=== PATIENT | male | born 1995 ===

== ENCOUNTER 2018-03-17 19:06 | Emergency (ER) | payer BC ==
--- NOTE | 2018-03-17 19:10 | ER Report ---
History and Physical Time Seen By MD: 19:11 HPI/ROS CHIEF COMPLAINT: ankle injury HISTORY OF PRESENT ILLNESS: This is a 22 year old male. He was kick-boxing and planted his left foot to kick with his right. Twisted wrong and fell onto his left foot, hyper plantar flexion. Has pain in forefoot and lateral ankle. Has normal sensation. Cannot bear weight. Can move the foot and toes, but with significant pain. Allergies: Coded Allergies: No Known Allergies (Verified Allergy, Unknown, 03/17/18) Home Meds Active Scripts Hydrocodone Bit/Acetaminophen (HYDROCODON-ACETAMINOPHEN 5-325) 1 Each Tablet, 1 EACH PO Q4H PRN for PAIN, #6 TAB 0 Refills Prov:TEREZA ESTEBAN MD 03/17/18 Reviewed Nurses Notes: Yes Constitutional Vital Sign - Last 24 Hours 03/17/18 03/17/18 19:14 19:36 Temp 98.5 Pulse 80 65 Resp 14 B/P (MAP) 131/77 Pulse Ox 95 91 O2 Delivery Room Air Physical Exam General: Alert, mild distress Musculoskeletal: Pain in lateral ankle, but not over the lateral or medial malleolus, pain just below in lateral foot. Pain over head of the 5th metatarsal. Pain in the are of tarsal and metatarsals as well. Neuro: Can move the toes and foot, but cause pain. Normal sensation. Cardiovascular: Normal cap refill and PT and DP pulses. Skin: No breakdown or bruising, but does have swelling. Medical Decision Making EKG/Imaging Imaging FOOT 3 VIEW LEFT COMPARISONS: None. ADDITIONAL PERTINENT HISTORY: Injury while kickboxing FINDINGS: Osseous structures: Negative. Joint spaces: Negative. Surrounding soft tissues: Negative. IMPRESSION: Normal views of the left foot. Report Dictated By: Fred Carvalho MD at 03/17/2018 7:40 PM ANKLE 3 VIEW MIN LEFT COMPARISONS: None. ADDITIONAL PERTINENT HISTORY: Injury while kickboxing FINDINGS: Osseous structures: Negative. Joint spaces: Negative. Surrounding soft tissues: Negative. IMPRESSION: Normal views of the left ankle. Report Dictated By: Fred Carvalho MD at 03/17/2018 7:38 PM ED Course/Re-evaluation ED Course Negative imaging, reviewed this with the patient. Conservative management. He has crutches at home. Off work until he is able to bear weight. Decision to Disposition Date: Mar 17, 2018 Decision to Disposition Time: 20:18 Depart Departure Latest Vital Signs Vital Signs Date Time Temp Pulse Resp B/P (MAP) Pulse Ox O2 Delivery O2 Flow Rate FiO2 03/17/18 19:36 65 91 03/17/18 19:14 98.5 14 131/77 Room Air Impression: Primary Impression: Left ankle sprain Additional Impression: Sprain of foot, left Condition: Improved Disposition: HOME OR SELF-CARE New Scripts Hydrocodone Bit/Acetaminophen (HYDROCODON-ACETAMINOPHEN 5-325) 1 Each Tablet 1 EACH PO Q4H PRN for PAIN, #6 TAB 0 Refills Prov: TEREZA ESTEBAN MD 03/17/18 Patient Instructions: Ankle Sprain (ED), Foot Sprain (ED) Additional Instructions: Ibuprofen 200mg over the counter tablets, take 4 tablets three times a day with food. Lortab 5/325, one every 4 hours as needed for pain. Apply ice 20 minutes every 1-2 hours while awake. An LAUREN wrap can be used for compression to help reduce swelling. Rest the injured area, keep it elevated while at rest. Begin gentle range of motion exercises, crutches with weightbearing as tolerated. Off work until able to bear weight. If symptoms lasting greater than 7 days, will need follow-up with primary care or orthopedic surgery. Problem Qualifiers Primary Impression: Left ankle sprain Encounter type: initial encounter Involved ligament of ankle: anterior talofibular ligament Qualified Codes: S93.492A - Sprain of other ligament of left ankle, initial encounter Additional Impression: Sprain of foot, left Encounter type: initial encounter Qualified Codes: S93.602A - Unspecified sprain of left foot, initial encounter TEREZA ESTEBAN MD Mar 17, 2018 19:10
[2018-03-17 19:14] VITALS: BP 131/77
--- NOTE | 2018-03-17 19:43 | RADIOLOGY IMAGING REPORT ---
FACILITY: [facility] - [place] PATIENT NAME: Milo Rubalcava : 1995 MR: [id number] V: [id number] EXAM DATE: ORDERING PHYSICIAN: TEREZA ESTEBAN TECHNOLOGIST: Location: [facility] [place] Patient: Milo Rubalcava : 1995 Visit/Account:[id number] Date of Sevice: 03/17/2018 ANKLE 3 VIEW MIN LEFT COMPARISONS: None. ADDITIONAL PERTINENT HISTORY: Injury while kickboxing FINDINGS: Osseous structures: Negative. Joint spaces: Negative. Surrounding soft tissues: Negative. IMPRESSION: Normal views of the left ankle. Report Dictated By: Fred Carvalho MD at 03/17/2018 7:38 PM Report E-Signed By: Fred Carvalho MD at 03/17/2018 7:39 PM WSN:[id number]
--- NOTE | 2018-03-17 19:44 | RADIOLOGY IMAGING REPORT ---
FACILITY: [facility] - [place] PATIENT NAME: Milo Rubalcava : 1995 MR: [id number] V: [id number] EXAM DATE: ORDERING PHYSICIAN: TEREZA ESTEBAN TECHNOLOGIST: Location: [facility] [place] Patient: Milo Rubalcava : 1995 Visit/Account:[id number] Date of Sevice: 03/17/2018 FOOT 3 VIEW LEFT COMPARISONS: None. ADDITIONAL PERTINENT HISTORY: Injury while kickboxing FINDINGS: Osseous structures: Negative. Joint spaces: Negative. Surrounding soft tissues: Negative. IMPRESSION: Normal views of the left foot. Report Dictated By: Fred Carvalho MD at 03/17/2018 7:40 PM Report E-Signed By: Fred Carvalho MD at 03/17/2018 7:41 PM WSN:[id number]
[2018-03-17] MEDS ORDERED: APAP/HYDROCODONE 325/5 TAB PO ONE (20:15)
[2018-03-17] MEDS ORDERED: ACET/HYDROC 5/325MG TH ER ONLY 2 TAB/BOTTLE PO ONE (20:15)
[2018-03-17] MEDS ORDERED: LOR5/325 PO (20:19)
== END 2018-03-17 20:33 | disposition home or self-care (01) ==
LOC: ER 19:06
DX: S93.492A Sprain of other ligament of left ankle, initial encounter (principal); S93.602A Unspecified sprain of left foot, initial encounter; X50.1XXA Overexertion from prolonged static or awkward postures, initial encounter; Y93.71 Activity, boxing
CPT/HCPCS: 99284

== ENCOUNTER → 2018-03-26 | Outpatient (CLI) | payer BC ==
[~2018-03-26] MED LIST: LOR5/325 PO
--- NOTE | 2018-03-26 17:39 | RADIOLOGY IMAGING REPORT ---
[facility] PATIENT NAME: Milo Rubalcava : 1995 MR: [id number] V: [id number] EXAM DATE: ORDERING PHYSICIAN: LANCE CAMPBELL TECHNOLOG[place]: [place] [facility] [place] Miol Rubalcava : 1995 Visit/Account:[id number] Date of Sevice: 03/26/2018 INDICATION: . Foot injury at the base of the second metatarsal. DATE: 03/26/2018 5:29 PM. TECHNIQUE: FOOT LEFT W/O CONTRAST. Noncontrast axial CT imaging was performed through the left foot a nd ankle with sagittal and coronal reformats. One of the following dose optimization techniques was u tilized in the performance of this exam: Automated exposure control; adjustment of the mA and/or kV a ccording to the patient's size; or use of an iterative reconstruction technique. Specific details c an be referenced in the facility's radiology CT exam operational policy. COMPARISON: For radiographs March 17, 2018. FINDINGS: There is a fracture at the distal inferior margin of the medial cuneiform with several small fragment s near the first intermetatarsal articulation (image 39 of series 5). There is also a tiny fracture f ragment at the distal margin of the middle cuneiform (image 37 of series 5). This fragment probably a rises from the second metatarsal base. The fracture fragments between the first and second metatarsal s could be from the cuboid fracture, but an underlying Lisfranc injury is not excluded. There is also a tiny area of fragmentation at the distal margin of the cuboid on image 48 of series 5. IMPRESSION: 1. Fracture at the distal aspect of the medial cuneiform has several small fragments. 2. Fragments between the base of the first and second metatarsal may arise from the medial cuneiform, but an underlying Lisfranc ligamentous injury is not entirely excluded. Correlate with MRI if clinic ally suspected. 3. Tiny fragment at the base of the second metatarsal on the lateral side. 4. Small air fragmentation at the distal margin of the cuboid. Report Dictated By: Kylah Jerez MD at 03/26/2018 5:29 PM Report E-Signed By: Kylah Jerez MD at 03/26/2018 5:35 PM WSN:[id number]
== END ==
LOC: RAD 16:20
PROVIDERS: ATTEND Orthopaedic Surgery
DX: S92.322A Displaced fracture of second metatarsal bone, left foot, initial encounter for closed fracture (principal)